=== PATIENT | female | born 1995 | race Caucasian/White ===

== ENCOUNTER 2022-12-04 20:00 | Outpatient (REF) | payer OTHER, SELFPAY ==
[2022-12-09 09:11] LABS: Age Gdln ACOG Testing Note (.); IGP, rfx Aptima HPV ASCU Note (.)
== END 2022-12-04 20:01 ==
LOC: LAB 20:00
PROVIDERS: PCP Physician Assistant; Visit Provider Physician Assistant
DX: Z12.4 Encounter for screening for malignant neoplasm of cervix (principal)
CPT/HCPCS: G0145

== ENCOUNTER 2024-03-01 18:46 | Outpatient (REF) | payer OTHER, SELFPAY | END 2024-03-01 18:47 | disposition home or self-care (01) | LOC: LAB 18:46 | PROVIDERS: PCP Physician Assistant; Visit Provider Physician Assistant | DX: Z01.419 Encounter for gynecological examination (general) (routine) without abnormal findings (principal) | CPT/HCPCS: 88175 ==

== ENCOUNTER 2025-03-06 14:32 | Outpatient (REF) | payer BC, SELFPAY ==
--- OUTSIDE RECORDS SUMMARY | 2023-10-02 09:56 | XMS_ITS ---
Author Organization [facility] in [place] Address [address] [place] [address] Care Team Providers Care Healthcare Economics Manager Name Role Phone Trell Carter Primary Care Provider SRI EDWARDS [phone] REASON FOR VISIT rf wellbutrin Medications Medication SIG (Take, Route, Fr equency, Duration) Notes Start Date End Date Status Wellbutrin XL 150 MG 1 tablet in the mor johanne Orally Once a day for 30 days 10/02/2023 Active Encounters Encounter Location Date Provider Diagnosis [address] [address] 10/02/2023 SRI EDWARDS Plan Of Treatment Medication Medication Name Sig Start Date Stop Date Notes Wellbutrin XL 150 MG 1 tablet in the mor johanne Orally Once a day for 30 days 10/02/2023 Progress Notes * Mer WINTERS ADOB:1995 (28 yo F)Acc No.[id number]:10/02/2023 Patient: Zack dotson Chatraci Nilda :1995 A ge:28 Y S ex:Female Address:[address] [place] [address] * Refills Start Wellbutrin XL Tablet Extended Release 24 Hour, 150 MG, Orally, 30, 1 tablet in the morning, Once a day, 30 days, Refills=0 * true * Date: Generated for Printi ng/Faxing/eTransmitting on: 0 03/06/2025 02:34 PM EDT
--- OUTSIDE RECORDS SUMMARY | 2023-11-24 06:45 | XMS_ITS ---
Author Organization [facility] in [place] Address [address] [place] [address] Care Team Providers Care Polymerization Engineer Name Role Phone Terll Ramsey Primary Care Provider [phone] LOY RAMSEY Unavailable [phone] Allergies No Known Allergies REASON FOR VISIT Yearly- med refill Medications Medication SIG (Take, Route, Frequency, Duration) Notes Start Date End Date Status buPROPion HCl ER (SR) 100 MG 1 tablet in the morning Orally Once a day for 30 day(s) 11/24/2023 Active Wellbutrin XL 150 MG 1 tablet in the mor johanne Orally Once a day for 30 days 10/02/2023 Active Social History Tobacco Use: Social History Observation Description Date Details (start date - stop date) Never Smoker NA - NA Tobacco Control (Standard) Question Answer Notes Tobacco use: Nonsmoker AUDIT-C (Standard) Question Answer Notes Did you have a drink contain ing alcohol in the past year? Yes How often did you have six o r more drinks on one occasion in the past year? Never (0 point) How many drinks did you have on a typical day when you were drinking in the past year? 1 or 2 drinks (0 point) How often did you have a dri nk containing alcohol in the past year? 2 to 4 times a month (2 points) Points 2 Interpretation Negative Problems Problem Type SNOMED Code ICD Code Onset Dates Problem Status W/U Status Risk Notes Problem Well adult (583228321) Well adult (Z00.00) Active confirmed Vital Signs Blood pressure systolic 120 mm Hg 11/24/19 24 Blood pressure diastolic 72 mm Hg 024 Height 63.75 in 11/24/2023 Weight 150.8 lbs 11/24/2023 BMI 26.09 kg/m2 11/24/2023 Encounters Encounter Location Date Provider Diagnosis [place] [id number] [facility] [place] [address] 11/24/2023 LOY RAMSEY Well adult Z00.00 Assessments Encounter Date Diagnosis (ICD Code) Assessment Notes Treatment Notes Treatment Clinical Notes Section Notes 11/24/2023 Well adult (ICD-10 - Z00.00) Plan Of Treatment Medication Medication Name Sig Start Date Stop Date Notes buPROPion HCl ER (SR) 100 MG 1 tablet in the morning Orally Once a day for 30 day(s) 11/24/2023 Pending Test Test Name Order Date CMP (COMPLETE METABOLIC PANEL) HEMOGLOBIN A1C (GLYCO) 11/24/2023 LIPID PANEL (CHOL/TRIG/HDL/LDL) 11/24/19 CBC WITH DIFF 11/24/2023 TSH 11/24/2023 Progress Notes * Mer WINTERS ADOB:1995 (28 yo F)Acc No.[id number]:11/24/2023 Progress Note Patient: Fabiano STORMyolis Nilda Provider: Donavan Ramsey M.D. :1995 A ge:28 Y S ex:Female Date:11/24/2023 Address:[address] [place], [place] [id number] Check In:10:51 AM ESTCheck O ut:11:15 AM EST Subjective: * Chief Complaints: * Y early- med refill * HPI: D epression Screening: well adult. PHQ-2 (2015 Edition) L ittle interest or pleasure in doing things??Not at all F eeling down, depressed, or hopeless? N ot at all T otal Score 0 * ROS: E ENT: hearing changes d enies. v isual changes d enies.?non-healing mouth sores d enies. s wollen glands or neck lumps d enies. h oarseness d enies. s ore throat d enies. d ifficulty swallowing d enies. n ose bleeds d enies. n matthew congestion d enies. e ar ache d enies. e ar discharge?denies. r inging in ears d enies. l ight sensitivity d enies. e ye pain d enies. b lurring d enies. e ye irritation d enies. d ouble vision d enies.?vision loss d enies. G eneral/Constitutional: Sweats: D enies. F atigue d enies. S leep problems d enies. A norexia d enies. M alaise d enies. W eight loss d enies.?Fatigue or Weakness d enies. F ever or Chills d enies. C ardiovascular: Shortness of Breath w/lying flat d enies. L ightheadedness/dizziness d enies. C hest tightness/ heavy pressure d enies. S welling of legs, ankles, or feet d enies. W aking up with shortness of breath d enies. C hest pain denies. P alpitations d enies. W eight gain d enies. R espiratory: Chronic or frequent cough d enies. C oughing up blood?denies. D ifficulty breathing d enies. P roductive cough d enies. S noring?denies. S hortness of breath that awakens from sleep (PND) d enies. C hest pain d enies. S putum production d enies. W heezing d enies. M usculoskeletal: Joint pain d enies. J oint Fluid d enies. B ack pain d enies. K nee pain d enies. N olive pain d enies. J oint Stiffness d enies. M uscle cramps d enies. W eakness of muscles d enies. A rthritis d enies. M uscle aches d enies. P ain in shoulder(s) d enies. S wollen joints d enies. * Active Problem List Z00.00 Well adult Modified On:11/24/2023W/U Status:confirmed * Medical History: * Surgical History: A ppendix 2016 * Hospitalization/Major Diagno stic Procedure: D enies Past Hospitalization * Family History: F ather: alive, diagnosed with Hypertension. M other: alive. M aternal Grandmother: , diagnosed with Cancer. M aternal aunt: , diagnosed with Cancer. * Social History: T obacco Use: T obacco Control (Standard) T obacco use: N onsmoker D rug/Alcohol: A KAILYN-C (Standard) D id you have a drink containing alcohol in the past year? Y es H ow often did you have six or more drinks on one occasion in the past year? N ever (0 point) H ow many drinks did you have on a typical day when you were drinking in the past year? 1 or 2 drinks (0 point) H ow often did you have a drink containing alcohol in the past year? 2 to 4 times a month (2 points) P oints 2 I nterpretation N egative * Medications: T akingWellbutrin XL(buPROPion HCl ER (XL)) 150 MG Tablet Extended Release 24 Hour 1 tablet in the morning Orally Once a day Medication List reviewed and reconciled with the patientTaking Wellbutrin XL(buPROPion HCl ER (XL)) 150 MG Tablet Extended Release 24 Hour 1 tablet in the morning Orally Once a day Medication List reviewed and reconciled with the patient * Allergies: N .K.D.A.no[Allergies Verified] Objective: * Vitals: W t:150.8lbs, Ht: 63.75 in, BP:120/72mm Hg, BMI:26.09Index, Ht-cm: 161.93 cm, Wt- k.4 kg. * Examination: P hysical Exam: GENERAL: w ell developed, well nourished, in no acute distress. HEAD: n ormocephalic/atraumatic. EYES: p upils equal, round and reactive to light, conjunctivae and sclerae normal. EARS: n o deformity or lesion of external ear, canals and TM appear normal bilaterally, TM's intact, not inflamed with normal light reflex, hearing grossly normal to conversational speech. NOSE: n o deformity, discharge, inflammation, or lesions.? MOUTH: m ucous membranes moist, normal oropharynx and posterior pharynx without lesions or exudates, tongue normal, dentition normal. NECK: n olive supple, no masses or palpable cervical nodes, trachea midline, thyroid without nodules, masses, tenderness, or enlargement. CHEST: n o chest wall deformity, no chest wall tenderness.? LUNGS: n ormal respiratory effort and clear to auscultation, no wheezes, rales, or rhonchi, good air exchange. CARDIO: r egular rate and rhythm, normal S1 and S2, nor murmur, rub, or gallop. PULSES: n ormal capillary refill. ABDOMEN: s oft, non-distended, non-tender, no masses. MUSCULOSKELETAL: n o deformity or scoliosis noted, normal range of motion, joints normal, no erythema, edema, effusion, or ecchymosis. EXTREMITY: n o clubbing, cyanosis, edema, or deformity with normal ROM in both upper and lower bilateral extremities. NEUROLOGIC: g rossly normal. SKIN: n o rashes, ulcerations, or suspicious lesions. LYMPH NODES: n o cervical adenopathy, nodes normal. MENTAL STATUS: a lert and oriented x3, normal mood and affect. Assessment: * Assessment: 1. [facility] adult - Z00.00 (Primary) Plan: * Treatment: * Procedure Codes: * Preventive Medicine: Screenings/Counseling: B AL ACTION PLAN Above Normal BMI Follow-up D ietary management education, guidance, and counseling * * Sign off status: Completed Visit Status: C HK (Check Out) true * Provider: Donavan Ramsey M.D. Date: 0 11/24/2023 Generated for Printi cole/Marshal/eTransmitting on: 0 03/06/2025 02:35 PM EDT History and Physical Notes * HPI (History of Present Illness) Category Sub-Category Detail Notes Category Not es Depression Screening PHQ-2 (2015 Edition) Little interest or pleasure in doing things?: Not at all Feeling down, depressed, or hopeless?: N ot at all Total Score: 0 Examination Category Sub-Category Detail Notes Category Not es Physical Exam GENERAL: well developed, well nourished, in no acute distress HEAD: normocephalic/atraum atic EYES: pupils equal, round and reactive to light, conjunctivae and sclerae normal EARS: no deformity or lesi on of external ear, canals and TM appear normal bilaterally, TM's intact, not inflamed with normal light reflex, hearing grossly normal to conversational speech NOSE: no deformity, discha rge, inflammation, or lesions MOUTH: mucous membranes [facility], normal oropharynx and posterior pharynx without lesions or exudates, tongue normal, dentition normal NECK: neck supple, no mass es or palpable cervical nodes, trachea midline, thyroid without nodules, masses, tenderness, or enlargement CHEST: no chest wall deform ity, no chest wall tenderness LUNGS: normal respiratory e ffort and clear to auscultation, no wheezes, rales, or rhonchi, good air exchange CARDIO: regular rate and rhy thm, normal S1 and S2, nor murmur, rub, or gallop PULSES: normal capillary ref ill ABDOMEN: soft, non-distended, non-tender, no masses RECTAL: MUSCULOSKELETAL: no deformity or scol iosis noted, normal range of motion, joints normal, no erythema, edema, effusion, or ecchymosis EXTREMITY: no clubbing, cyanosi s, edema, or deformity with normal ROM in both upper and lower bilateral extremities NEUROLOGIC: grossly normal SKIN: no rashes, ulceratio ns, or suspicious lesions LYMPH NODES: no cervical adenopat hy, nodes normal MENTAL STATUS: alert and oriented x 3, normal mood and affect
--- OUTSIDE RECORDS SUMMARY | 2025-03-06 10:00 | XMS_ITS | Encounter Summary ---
Author Organization [facility] Address [address] [place] [address] Care Team Providers Care Pier Master Name Role Phone Andrea Carter MD Primary Care Provider [phone] Reason for Visit * Reason Comments Well Women Visit Encounter Details Date Type Department Care Team (Latest Contact Info) Description 03/06/2025 10:00 AM EDT Procedure Visit [facility] [address] [facility] [place] [address] Quin Rubio, LINDA [address] [facility] [place] [address] Well woman exam with routine gynecological exam; control counseling Social History Tobacco Use Types Packs/Day Years Used Date Smoking Tobacco: Never Assessed Comments No Sex and Gender Information Value Date Recorded Sex Assigned at Female 12/03/2022 5:46 PM EDT Legal Sex Female 11:47 PM EDT Gender Identity Female 12/03/2022 5:46 PM EDT Sexual Orientation Straight 12/03/2022 5: 46 PM EDT documented as of this encounter Last Filed Vital Signs Vital Sign Reading Time Taken Comments Blood Pressure 130/84 03/06/2025 10:28 AM EDT Pulse - - Temperature - - Respiratory Rate - - Oxygen Saturation - - Inhaled Oxygen Concentration - - Weight 71.8 kg (158 lb 4 oz) 03/06/2025 10:28 AM EDT Height 161.9 cm (5' 3.75 ) 03/06/2025 10:28 AM E DT Body Mass Index 27.38 03/06/2025 10:28 AM EDT documented in this encounter Progress Notes * Gissel Cade, TUBE AND MANIFOLD BUILDER - 03/06/2025 10:00 AM EDT Reason for Appointment: Patient ID: Mer Winters is a 29 y.o. female who presents for Well Women Visit Patient presents today for Annual Exam. MEDICATIONS Current Outpatient Medications Medication Instructions buPROPion SR (WELLBUTRIN SR) 100 mg, Oral, Every morning norethindrone-ethinyl estradiol-iron (Rosibel FE .11/25) 1.5-30 MG-MCG tablet 1 tablet, Oral, Daily ALLERGIES Allergies Allergen Reactions Bee Venom PROBLEMS Active Ambulatory Problems Diagnosis Date Noted No Active Ambulatory Problems Resolved Ambulatory Problems Diagnosis Date Noted No Resolved Ambulatory Problems No Additional Past Medical History HISTORY PAST MEDICAL HISTORY SOCIAL HISTORY History reviewed. No pertinent past medical history. Social History Tobacco Use Smoking status: Not on file Smokeless tobacco: Not on file Substance Use Topics Alcohol use: Not on file Drug use: Not on file FAMILY HISTORY Family History Problem Relation Name Age of Onset Hypertension Father Hypertension Paternal Grandfather Lung cancer Other Breast cancer Other Heart attack Other SURGICAL HISTORY Past Surgical History: Procedure Laterality Date APPENDECTOMY 2016 WISDOM TOOTH EXTRACTION REVIEW OF SYSTEMS Review of Systems: Review of Systems Constitutional: Negative. HENT: Negative. Eyes: Negative. Respiratory: Negative. Cardiovascular: Negative. Gastrointestinal: Negative. Genitourinary: Negative. Musculoskeletal: Negative. Skin: Negative. Neurological: Negative. All other systems reviewed and are negative. Hematological: Negative. Endocrine: Negative. Allergic/Immunologic: Negative. OBJECTIVE Objective: Physical Exam Constitutional: Appearance: Normal appearance. She is well-developed. Genitourinary: Vulva normal. Breasts: Breasts are soft. Right: Normal. Left: Normal. Cardiovascular: Rate and Rhythm: Normal rate and regular rhythm. Pulmonary: Effort: Pulmonary effort is normal. Breath sounds: Normal breath sounds. Abdominal: General: Bowel sounds are normal. There is no distension. Palpations: Abdomen is soft. Tenderness: There is no abdominal tenderness. There is no guarding or rebound. Musculoskeletal: General: No swelling. Normal range of motion. Right lower leg: No edema. Left lower leg: No edema. Neurological: Mental Status: She is alert and oriented to person, place, and time. Skin: General: Skin is warm and dry. Psychiatric: Mood and Affect: Mood normal. Behavior: Behavior normal. Vitals and nursing note reviewed. Exam conducted with a vmware consultant present. Vitals: Estimated body mass index is 27.38 kg/m?? as calculated from the following: Height as of this encounter: 5' 3.75 . Weight as of this encounter: 158 lb 4 oz. BP: 130/84 Patient's last menstrual period was 02/07/2025. ASSESSMENT & PLAN ICD-10-CM 1. Well woman exam with routine gynecological exam Z01.419 Pap Smear 2. control counseling Z30.09 norethindrone-ethinyl estradiol-iron (Rosibel PRIYANK .11/25) 1.5-30 MG-MCG tablet POCT , urine manually resulted Annual Exam: Patient presents today for an annual exam. Patient states she is doing well and has no complaints. Pap was obtained without difficulty. Refills on OCP sent for 1 year to pharmacy. Orders Placed This Encounter Procedures POCT , urine manually resulted Follow Up: Patient is to return in one year for annual unless needed otherwise. Documented by Gissel Cade LPN on behalf of: Quin Rubio NP documented in this encounter Plan of Treatment Upcoming Encounters Date Type Department Care Team (Late st Contact Info) Description 03/12/2026 4:00 PM EDT Procedure Visit [facility] [address] [facility] [place] [address] Shamir He DO [address] [place] [address] Scheduled Orders Name Type Priority Associated Diagnoses Orde r Schedule Pap Smear Pathology and Cytology Routine Well woman exam with routine gynecological exam Ordered: 03/06/2025 documented as of this encounter Procedures Procedure Name Priority Date/Time Associated Diagnosis Comments POCT , URINE Routine 03/06/2025 10:35 AM EDT control counseling documented in this encounter Results * POCT , urine manually resulted (03/06/2025 10:35 AM EDT) Preg Test, Ur Negative Negative Urine 03/06/2025 10:3 5 AM EDT Quin Rubio MAKEUP ARTIST POINT OF CARE TEST ENTER/EDIT ORDERABLES Final Result documented in this encounter Visit Diagnoses Diagnosis Well woman exam with routine gynecological exam Routine gynecological examination control counseling documented in this encounter Care Teams Pier Master Relationship Specialty Start Date End Date Andrea Carter MD [address] [place] [address] PCP - General 12/03/22 documented as of this encounter
--- OUTSIDE RECORDS SUMMARY | 2025-03-06 14:35 | XMS_ITS | Patient Health Record ---
Author Organization [facility] in [place] Address [address] [place] [address] Care Team Providers Care Safe Deposit Box Rental Clerk Name Role Phone Trell Carter Primary Care Provider Allergies No Known Allergies Reason For Referral No Information Medications Medication SIG (Take, Route, Frequency, Duration) Notes Start Date End Date Status buPROPion HCl ER (SR) 100 MG take 1 tablet by mouth every morning for 30 Active Wellbutrin XL 150 MG 1 tablet [...] W/U Status Risk Notes Problem Well adult (758062793) Well adult (Z00.00) Active confirmed Encounters Encounter Location Date Provider Diagnosis [facility] [address] [place] [address] 03/08/2024 Trell Carter Well adult Z00.0 0 Assessments Encounter Date Diagnosis (ICD Code) Assessment Notes Treatment Notes Treatment Clinical Notes Section Notes 03/08/2024 Well adult (ICD-10 - Z00.00) Plan Of Treatment Pending Test Test Name Order Date CMP (COMPLETE METABOLIC PANEL) 4 HEMOGLOBIN A1C (GLYCO) 11/24/2023 LIPID PANEL (CHOL/TRIG/HDL/LDL) 11/24/19 24 CBC WITH DIFF 11/24/2023 TSH 11/24/2023 Insurance Providers Payer Name Payer Address Payer Phone Subscriber Number Group Number Insured Name Patient Relationship to Insured Coverage Start Date Coverage End Date [employer]ESS PPO PLUS LOCAL PLAN [address] [place] [address] [id number] Mer Winters Self - patient is the insured Medical (General) History Medical History History ICD Code COVID-19 U07.1 Eczema L30.9 Fracture Left Ulna/Radius Surgical History Surgery Date(Month/Year) Appendix 2016
--- OUTSIDE RECORDS SUMMARY | 2025-03-06 14:35 | XMS_ITS | Encounter Summary ---
Author Organization [facility] Address [address] [place] [address] Care Team Providers Care Direct Care Provider Name Role Phone Andrea Carter MD Primary Care Provider [phone] Encounter Details Date Type Department Care Team (Late st Contact Info) Description 03/07/2024 Orders Only [facility] [address] [facility] [place] [phone] Genna Hamilton LPN [address] [place] [address] Social History Tobacco Use Types Packs/Day Years Used Date Smoking Tobacco: Never Assessed Comments Unknown Sex and Gender Information Value Date Recorded Sex Assigned at Female 12/03/2022 5:46 PM EDT Legal Sex Female 11:47 PM EDT Gender Identity Female 12/03/2022 5:46 PM EDT Sexual Orientation Straight 12/03/2022 5: 46 PM EDT documented as of this encounter Plan of Treatment Upcoming Encounters Date Type Department Care Team (Late st Contact Info) Description 03/12/2026 4:00 PM EDT Procedure Visit [facility] [address] [facility] [place] [address] Shamir He DO [address] [facility] [address] [place] [id number] documented as of this encounter Procedures Procedure Name Priority Date/Time Associated Diagnosis Comments PAP SMEAR Routine 03/01/2024 12:00 AM EDT documented in this encounter Results * Pap Smear (03/01/2024 12:00 AM EDT) Swab Cervical swab / Unknown Sofia [facility] CYTOLOGY ORDERABLES Final Re sult EXTERNAL LAB documented in this encounter Visit Diagnoses Not on filedocumented in this encounter Care Teams Direct Care Provider Relationship Specialty Start Date End Date Andrea Carter MD [address] [place] [phone] PCP - General 12/03/22 documented as of this encounter
--- OUTSIDE RECORDS SUMMARY | 2025-03-06 14:35 | XMS_ITS | Encounter Summary ---
Author Organization [facility] Address [address] [place] [address] Care Team Providers Care Meat Dresser Name Role Phone Andrea Carter MD Primary Care Provider [phone] Encounter Details Date Type Department Care Team (Latest Contact Info) Description 03/06/2025 Travel Social History Tobacco Use Types Packs/Day Years [...] 03/12/2026 4:00 PM EDT Procedure [facility] [address] [place] [phone] Shamir He DO [address] [facility] [place] [address] documented as of this encounter Visit Diagnoses Not on filedocumented in this encounter Care Teams Meat Dresser Relationship Specialty Start Date End Date Andrea Carter MD [address] [facility] [place] [address] PCP - General 12/03/22 documented as of this encounter
--- OUTSIDE RECORDS SUMMARY | 2025-03-06 14:35 | XMS_ITS | Encounter Summary ---
Author Organization [facility] Address [address] [place] [address] Care Team Providers Care Marketing Research Coordinator Name Role Phone Andrea Carter MD Primary Care Provider [phone] Encounter Details Date Type Department Care Team (Late st Contact Info) Description 03/06/2025 Bamboo flowsheet [facility] [address] [facility] [place] [address] Quin Rubio, BUSINESS PROFESSOR [address] [facility] [place] [phone] Social History Tobacco Use Types Packs/Day Years [...] EDT Procedure Visit [facility] [address] [facility] [place] [address] Shamir He DO [address] [facility] [address] [place], [place] [phone] documented as of this encounter Visit Diagnoses Not on filedocumented in this encounter Care Teams Marketing Research Coordinator Relationship Specialty Start Date End Date Andrea Carter MD [address] [place] [phone] PCP - General 12/03/22 documented as of this encounter
--- OUTSIDE RECORDS SUMMARY | 2025-03-06 14:35 | XMS_ITS | Clinical Summary ---
Author Organization [facility] Address [address] [place] [address] Care Team Providers Care Position Clerk Name Role Phone Andrea Carter MD Primary Care Provider [phone] Allergies Active Allergy Reactions Criticality Noted Date Comments Bee Venom 03/06/2025 Medications buPROPion SR (Wellbutrin SR) 100 MG 12 hr tablet Take 100 mg by mouth in the morning. 4 Active norethindrone-ethi nyl estradiol-iron (Rosibel FE 1.5/30) 1.5-30 MG-MCG tabletIndications: Well woman exam with routine gynecological exam, control counseling Take 1 tablet by mouth Daily 84 tablet 3 5 03/06/20 26 Active norethindrone-ethi nyl estradiol-iron (Rosibel FE 1.5/30) 1.5-30 MG-MCG tabletIndications: control counseling Take 1 tablet by mouth Daily 84 tablet 3 4 03/06/20 25 Discontinu ed(Reorder ) norethindrone-ethi nyl estradiol-iron (Rosibel FE 1.5/30) 1.5-30 MG-MCG tabletIndications: control counseling Take 1 tablet by mouth Daily 84 tablet 3 5 03/06/20 25 Discontinu ed(Reorder ) Encounters Date Type Department Care Team Description 03/06/2025 10:00 AM EDT Procedure Visit [facility] [address] [place] [address] [place] [address] Quin Rubio NP Well woman exam with routine gynecological exam; control counseling 03/06/2025 Bamboo flowsheet [facility] [address] [place] [id number] Quin Rubio NP 03/06/2025 Travel from Last 3 Months Family History Medical History Relation Name Comments Hypertension Father Breast cancer Other Heart attack Other Lung cancer Other Hypertension Paternal Grandfather Relation Name Status Comments Father Other Paternal Grandfather Social History Tobacco Use Types Packs/Day Years Used Date Smoking Tobacco: Never Assessed Comments No Sex and Gender Information Value Date Recorded Sex Assigned at Female 12/03/2022 5:46 PM EDT Legal Sex Female 11:47 PM EDT Gender Identity Female 12/03/2022 5:46 PM EDT Sexual Orientation Straight 12/03/2022 5: 46 PM EDT Last Filed Vital Signs Vital Sign Reading [...] Mass Index 27.38 03/06/2025 10:28 AM EDT Plan of Treatment Upcoming Encounters Date Type Department Care Team (Late st Contact Info) Description 03/12/2026 4:00 PM EDT Procedure Visit [facility] [address] [place] [id number] Shamir He DO [address] [place] [address] Procedures Procedure Name Priority Date/Time Associated Diagnosis Comments POCT , URINE Routine 03/06/2025 10:35 AM EDT control counseling from Last 3 Months Results * POCT , urine manually resulted (03/06/2025 10:35 AM EDT) Preg Test, Ur Negative Negative Urine 03/06/2025 10:3 5 AM EDT Quin Rubio NP POINT OF CARE TEST ENTER/EDIT ORDERABLES Final Result from Last 3 Months Insurance BS Care Teams Position Clerk Relationship Specialty Start Date End Date Andrea Carter MD [address] [place] [address] PCP - General 12/03/22
--- OUTSIDE RECORDS SUMMARY | 2025-03-06 14:35 | XMS_ITS | Clinical Summary ---
Author Organization [facility] Address [address] [place] [address] Phone Care Team Providers Care Route Rider Name Role Phone Unavailable Primary Care Provider Unavailabl e Social History Tobacco Use Types Packs/Day Years Used Date Smoking Tobacco: Never Assessed Comments Unknown Sex and Gender Information Value Date Recorded Sex Assigned at Not on file Legal Sex Female 2:52 PM EST Gender Identity Not on file Sexual Orientation Not on file Plan of Treatment Not on file
[2025-03-08 16:18] LABS: Age Gdln ACOG Testing Note (.); IGP, rfx Aptima HPV ASCU Note (.)
== END 2025-03-06 14:33 | disposition home or self-care (01) ==
LOC: LAB 14:32
PROVIDERS: PCP Physician Assistant; Visit Provider Nurse Practitioner Family
DX: Z01.419 Encounter for gynecological examination (general) (routine) without abnormal findings (principal)
CPT/HCPCS: 88175